=== PATIENT | female | born 1990 | race Caucasian/White ===

== ENCOUNTER 2016-07-02 00:04 | Emergency (ER) | payer OTHER ==
[~2016-07-02 00:04] MED LIST: COLACE 100MG C100 MG PO
[2016-07-02 04:02] LABS: HEMOGLOBIN 12.3 gm/dl (12.3-15.3); RED BLOOD COUNT 4.2 M/UL (4.00-5.10); WHITE BLOOD COUNT 8.5 K/UL (4.5-11.0)
[2016-07-02 04:19] LABS: BUN/CREATININE RATIO 16 (0-10)
[2016-12-06] MEDS ORDERED: IBUPROFEN600 MG PO (09:36)
== END 2016-07-02 05:13 | disposition home or self-care (01) ==
LOC: ER1 00:04
PROVIDERS: Physician Assistant
DX: O20.0 Threatened abortion (principal); O99.282 Endocrine, nutritional and metabolic diseases complicating pregnancy, second trimester; E87.6 Hypokalemia; Z3A.16 16 weeks gestation of pregnancy; Z88.5 Allergy status to narcotic agent
CPT/HCPCS: 36415; 80053; 81001; 84702; 85025; 87086; 93005; 96360; 99284

== ENCOUNTER 2021-12-11 10:43 | Outpatient (CLI) | payer OTHER ==
[~2021-12-11 10:43] MED LIST changes: +IBUPROFEN600 MG PO
== END 2021-12-11 12:45 | disposition home or self-care (01) ==
LOC: GENOP 10:43
DX: O47.03 False labor before 37 completed weeks of gestation, third trimester (principal); O99.891 Other specified diseases and conditions complicating pregnancy; R51.9 Headache, unspecified; H53.8 Other visual disturbances; Z3A.23 23 weeks gestation of pregnancy
CPT/HCPCS: 81001; 82731; G0463